=== PATIENT | male | born 1945 | race Caucasian/White ===

== ENCOUNTER → 2021-01-16 | Outpatient (CLI) | payer MEDICARE ==
[2021-01-16 16:04] LABS: ABG HCO3 30 mmol/L (22-26); ABG PCO2 47 mmHg (35-45); ABG PH 7.42 (7.35-7.45); ABG PO2 72 mmHg (80-105); ABG TCO2 32
[2021-01-16 16:06] LABS: ABG HCO3 30 mmol/L (22-26); ABG PCO2 45 mmHg (35-45); ABG PH 7.43 (7.35-7.45); ABG PO2 67 mmHg (80-105); ABG TCO2 32
== END ==
LOC: LAB 15:05
PROVIDERS: ATTEND Internal Medicine
DX: J44.9 Chronic obstructive pulmonary disease, unspecified (principal)
CPT/HCPCS: 82805

== ENCOUNTER 2021-08-05 07:34 | Inpatient (IN) | payer MEDICARE ==
[~2021-08-05] VITALS: Ht 182.9 cm; Wt 71.4 kg
[2021-08-05] VITALS (12 sets, daily range): BP systolic 104–143; BP diastolic 55–110
[2021-08-05 08:09] LABS: HEMOGLOBIN 12.9 g/dL (14.0-18.0)
[2021-08-05 08:25] LABS: INR 0.99; PROTHROMBIN TIME 13.5 seconds (11.9-14.5)
[2021-08-05 08:26] LABS: PARTIAL THROMBOPLASTIN TIME 29.5 seconds (23.8-35.5)
[2021-08-05] MEDS ORDERED: FENTANYL CITRATE/PF 100MCG/2 ML INJ ONE (08:58)
[2021-08-05] MEDS ORDERED: MIDAZOLAM HCL 2 MG/2 ML VIAL ONE (08:58)
[2021-08-05] MEDS ORDERED: METHYLPREDNISOLONE SOD SUCC 125 MG/2ML VIAL ONE (11:25)
[2021-08-05] MEDS ORDERED: LEVALBUTEROL HCL SOLN NEBU 0.63 MG/3 ML NEB ONE (11:25)
[2021-08-05] MEDS ORDERED: DOXYCYCLINE IV ONE (11:25)
[2021-08-05] MEDS ORDERED: SODIUM CHLORIDE IV ONE (11:25)
[2021-08-05] MEDS ORDERED: LEVALBUTEROL HCL SOLN NEBU 0.63 MG/3 ML NEB IH ONE (11:53)
[2021-08-05 12:54] LABS: ABG PCO2 56 mmHg (35-45); ABG PH 7.31 (7.35-7.45)
[2021-08-05 12:55] LABS: ABG HCO3 29 mmol/L (22-26); ABG PO2 432 mmHg (80-105); ABG TCO2 30
[2021-08-05] MEDS ORDERED: LORAZEPAM INJ 2 MG/ML VIAL ONE (13:18)
[2021-08-05] MEDS ORDERED: LEVALBUTEROL HCL SOLN NEBU 0.63 MG/3 ML NEB INH PRN (15:00)
[2021-08-05] MEDS ORDERED: BUPROPION HCL150 M2 PO (15:04)
[2021-08-05] MEDS ORDERED: METFORMIN HCL500 MG PO (15:04)
[2021-08-05] MEDS ORDERED: PROVENTIL HFA6.7 GM INH (15:04)
[2021-08-05] MEDS ORDERED: ATORVASTATIN CA10 MG PO (15:04)
[2021-08-05] MEDS ORDERED: SYMBICORT 16010.2 GM INH (15:04)
[2021-08-05] MEDS ORDERED: ALBUTEROL1.25 MG/3 NEB (15:04)
[2021-08-05] MEDS ORDERED: FLOMAX0.4 MG PO (15:05)
[2021-08-05] MEDS ORDERED: INCRUSE ELLI62.5 MCG (15:06)
[2021-08-05] MEDS ORDERED: ACETAMINOPHEN 325 MG TAB PO PRN (20:00)
[2021-08-05] MEDS ORDERED: ONDANSETRON HCL INJ 2MG/ML 2ML 2 MG/ML VIAL IV PRN (20:00)
[2021-08-05] MEDS: BUDESONIDE/FORMOTEROL 160/4.5MCG INHALER INH SCH (20:02)
[2021-08-05] MEDS ORDERED: ZOLPIDEM TARTRATE 5 MG TAB PO PRN (21:00)
[2021-08-05] MEDS: METHYLPREDNISOLONE SOD SUCC 125 MG/2ML VIAL IV SCH (21:30)
[2021-08-05] MEDS: DOXYCYCLINE 100MG/NS 100ML 100 ML IV SCH (23:25)
[2021-08-06] VITALS (27 sets, daily range): BP systolic 119–186; BP diastolic 64–120
[2021-08-06] MEDS ORDERED: TIOTROPIUM 18 MCG INH POWDER INH SCH (06:00)
[2021-08-06] MEDS: BUDESONIDE/FORMOTEROL 160/4.5MCG INHALER INH SCH ×2 (07:30→19:10)
[2021-08-06] MEDS: METHYLPREDNISOLONE SOD SUCC 125 MG/2ML VIAL IV SCH (08:34)
[2021-08-06 08:44] LABS: BASOPHILS % 0.1 % (0.0-1.0); HEMATOCRIT 42.4 % (38.2-49.6); HEMOGLOBIN 13.3 g/dL (14.0-18.0); LYMPHOCYTES # (AUTO) 0.6 (1.0-3.2); LYMPHOCYTES % 5.7 % (18.0-39.1); MEAN CORPUSCULAR HGB CONC 31.4 g/dL (31-35); MEAN CORPUSCULAR VOLUME 92.6 fL (81-99); MONOCYTES # (AUTO) 0.3 (0.2-0.8); MONOCYTES % 2.8 % (4.4-11.3); NEUTROPHILS # (AUTO) 9.7 (2.1-6.9); NEUTROPHILS % 90.7 % (38.7-80.0); PLATELET COUNT 243 x10e3/uL (140-360); RED BLOOD COUNT 4.58 x10e6/uL (4.3-5.7); RED CELL DISTRIBUTION WIDTH 14.9 % (11.7-14.4)
[2021-08-06] MEDS ORDERED: TAMSULOSIN HCL 0.4 MG CAP PO SCH ×2 (09:00→21:00)
[2021-08-06 09:18] LABS: ALBUMIN 3.8 g/dL (3.5-5.0); ALBUMIN/GLOBULIN RATIO 0.9 (0.8-2.0); ANION GAP 18.2 mmol/L (8-16); CALCIUM 9.1 mg/dL (8.4-10.2); CREATININE, SERUM 1.22 mg/dL (0.72-1.25); POTASSIUM 4.2 mmol/L (3.5-5.1)
[2021-08-06] MEDS: DOXYCYCLINE 100MG/NS 100ML 100 ML IV SCH (10:22)
[2021-08-06] MEDS ORDERED: ALTEPLASE 100 MG/VIAL IV ONE (17:00)
[2021-08-06] MEDS ORDERED: ALTEPLASE 50 MG/VIAL (29 MILLION IU) IV ONE (17:00)
[2021-08-06 17:20] LABS: BASOPHILS % 0.2 % (0.0-1.0); HEMATOCRIT 40.4 % (38.2-49.6); HEMOGLOBIN 13.1 g/dL (14.0-18.0); LYMPHOCYTES # (AUTO) 0.6 (1.0-3.2); LYMPHOCYTES % 4.3 % (18.0-39.1); MEAN CORPUSCULAR HGB CONC 32.4 g/dL (31-35); MEAN CORPUSCULAR VOLUME 89.4 fL (81-99); MONOCYTES # (AUTO) 0.5 (0.2-0.8); NEUTROPHILS # (AUTO) 11.7 (2.1-6.9); PLATELET COUNT 250 x10e3/uL (140-360); RED BLOOD COUNT 4.52 x10e6/uL (4.3-5.7); RED CELL DISTRIBUTION WIDTH 14.8 % (11.7-14.4)
[2021-08-06 17:30] LABS: INR 0.97; PROTHROMBIN TIME 13.3 seconds (11.9-14.5)
[2021-08-06] MEDS ORDERED: SODIUM CHLORIDE 0.9% 1000ML 1,000 ML IV ONE (17:30)
[2021-08-06 17:40] LABS: ALBUMIN 3.7 g/dL (3.5-5.0); ALBUMIN/GLOBULIN RATIO 0.9 (0.8-2.0); ANION GAP 19.1 mmol/L (8-16); CREATININE, SERUM 1.18 mg/dL (0.72-1.25)
[2021-08-06 17:41] LABS: POTASSIUM 5.1 mmol/L (3.5-5.1)
[2021-08-06] MEDS ORDERED: SODIUM CHLORIDE 0.9% 100 ML ONE (17:55)
[2021-08-06] MEDS ORDERED: IOPAMIDOL 370 MG/ML 200 ML INFUS..BTL INJ ONE (17:55)
[2021-08-06] MEDS ORDERED: HYDRALAZINE HCL 20 MG/ML VIAL IV PRN (19:45)
[2021-08-07] MEDS ORDERED: METHYLPREDNISOLONE SOD SUCC 125 MG/2ML VIAL IV SCH (09:00)
== END 2021-08-06 20:39 | disposition short-term general hospital (02) | DRG 199 ==
LOC: CT 07:34 → ICU 14:12
PROVIDERS: ADMIT Internal Medicine; ATTEND Internal Medicine
PROC: 0BBG3ZX Excision of Left Upper Lung Lobe, Percutaneous Approach, Diagnostic (ICD-10-PCS; principal; 2021-08-05)
PROC: 3E03317 Introduction of Other Thrombolytic into Peripheral Vein, Percutaneous Approach (ICD-10-PCS; 2021-08-05)
PROC: 0W9B30Z Drainage of Left Pleural Cavity with Drainage Device, Percutaneous Approach (ICD-10-PCS; 2021-08-05)
DX: J93.9 Pneumothorax, unspecified (principal); J96.01 Acute respiratory failure with hypoxia; I63.9 Cerebral infarction, unspecified; J96.21 Acute and chronic respiratory failure with hypoxia; J44.1 Chronic obstructive pulmonary disease with (acute) exacerbation; J45.901 Unspecified asthma with (acute) exacerbation; R91.1 Solitary pulmonary nodule; Z20.822 Contact with and (suspected) exposure to COVID-19
CPT/HCPCS: 32408; 36415; 36600; 70450; 70496; 70498; 71045; 77012; 80053; 82805; 82948; 85014; 85025; 85049; 85610; 85730; 88305; 88342; 94660; 94664; 99251; J2060; J2250; J2930; J3010; J7030; J7050; Q9967